=== PATIENT | female | born 1980 | race Caucasian/White ===

== ENCOUNTER 2016-08-16 10:22 | Emergency (ER) | payer SELFPAY ==
[~2016-08-16] VITALS: Ht 170.2 cm; Wt 140.8 kg
[~2016-08-16 10:22] MED LIST: OXYC-360 PO; PENI500T PO
[2016-08-16 10:34] VITALS: BP 158/95; PULSE 87; RESP 16; TEMP 98.3; O2SAT 99
[2016-08-16] MEDS ORDERED: NAPR500 PO (11:23)
--- NOTE | 2016-08-16 11:24 | PD ---
HPI Chief Complaint: Injury Time Seen by Provider: 10:43 Travel History International Travel<30 days: No Contact w/Intl Traveler<30days: No Traveled to known affect area: No History of Present Illness HPI Is a 35 year-old woman who presents to the emergency department complaining of right ankle pain and swelling for the past 5-1/2 weeks. She states her son Hoashia vitalke when she fell and injured the right ankle. She hasn't the exact mechanics of the injury. She's had pain and swelling ankle since. It was worse today. She's had pain continuously for the past 5 weeks. Pain is pronounced when she is on her feet as she often is for work. No history of previous injuries. No other complaints. History Past Medical History Medical History: Denies Significant Hx LMP: ONE WEEK Social History Alcohol Use: No Tobacco Use: No Allergies-Medications (Allergen,Severity, Reaction): Coded Allergies: No Known Allergies (Verified , 08/16/16) Reported Meds & Prescriptions Reported Meds & Active Scripts Active Naprosyn (Naproxen) 500 Mg Tab 500 Mg PO BID PRN Review of Systems Except as stated in HPI: all other systems reviewed are Neg Physical Exam Narrative GENERAL: Well-appearing 35 year-old woman, no acute distress. SKIN: Warm and dry. CARDIOVASCULAR: Warm and well perfused. RESPIRATORY: Normal rate and effort. MUSCULOSKELETAL: Right ankle is still a little bit edematous. There is tenderness over the lateral ankle. Full range of motion of the ankle. No ligamentous instability. NEUROLOGICAL: Awake and alert. No gross deficits. Data Data Last Documented VS Vital Signs Date Time Temp Pulse Resp B/P Pulse Ox O2 Delivery O2 Flow Rate FiO2 08/16/16 10:34 98.3 87 16 158/95 99 Orders Ankle, Complete ([id number]) (08/16/16 ) [facility] Medical Decision Making Medical Screen Exam Complete: Yes Emergency Medical Condition: Yes Interpretation(s) My review of right ankle x-ray: Negative. Differential Diagnosis Distal fibular fracture, ankle strain or sprain, contusion, other Narrative Course Medical decision making INITIAL: 35 year-old woman with right ankle injury, suspect distal fibular fracture, we'll check x-ray, labs, compression, pain medicine, reassess. Diagnosis Primary Impression: Right ankle sprain Departure Forms: Tests/Procedures, Work Release Special Instructions: Please allow patient to keep right ankle elevated as possible until symptoms resolve. Additional Instructions: Elevate right ankle as much as possible. Take Naprosyn as needed for pain. Keep leg wrapped when you are on your feet. Use ankle splint until symptoms resolve. Med/Other Pt SpecificInfo: Prescription(s) given Scripts Naproxen (Naprosyn)500 Mg [id number] Mg PO BID PRN (PAIN SCALE 1 TO 10) #20 TAB Prov:Lee Us MD 08/16/16 Disposition: 01 DISCHARGE HOME Condition: Stable Lee Us MD August 16, 2016 11:24
--- NOTE | 2016-08-16 11:54 | RADHPO ---
EXAM DATE/TIME: 08/16/2016 11:08 [place] COMPARISON: No previous studies available for comparison. INDICATIONS : Ankle pain after fall. MEDICAL HISTORY : None. SURGICAL HISTORY : None. ENCOUNTER: Initial ACUITY: 1 month PAIN SCORE: 3/10 LOCATION: Right lateral ankle FINDINGS: Three view exam was performed of the right ankle. The bony structures are in normal alignment. No e vidence of fracture, dislocation or bony destruction.. The ankle mortise is intact. No radiopaque f oreign bodies are seen. Bony mineralization is normal. Mild soft tissue swelling CONCLUSION: No acute bony process Gustavo Gagnon MD on August 16, 2016 at 11:51 Board Certified Radiologist. This report was verified electronically.
== END 2016-08-16 12:10 | disposition home or self-care (01) ==
LOC: PHEFT 10:22
DX: S93.401A Sprain of unspecified ligament of right ankle, initial encounter (principal); X58.XXXA Exposure to other specified factors, initial encounter; Y93.9 Activity, unspecified; Y92.9 Unspecified place or not applicable; Y99.8 Other external cause status
CPT/HCPCS: 73610; 99283